=== PATIENT | male | born 1960 | race African-American/Black ===

== ENCOUNTER 2018-01-02 10:12 | Inpatient (IN) | payer OTHER ==
[~2018-01-02] VITALS: Ht 188 cm; Wt 107.6 kg
--- NOTE | ~2018-01-02 | EKG ---
[address] [place] [address] ELECTROCARDIOGRAM REPORT Name: CYDNEY ARIZMENDI Room #: 354-P ADM IN M.R.#: [id number] Admission: 01/02/18 Attend Phys: Shubham Tavera DO Discharge: Date of : 62 Report #: [id number] THIS REPORT FOR: //name// [facility] Test Date: 2018-01-03 Test Time: 10:05:48 Pat Name: CYDNEY ARIZMENDI Department: Room: 354 P Gender: M Fraud Prevention Analyst: MELISSA : 1960 Requested By: Ernesto Nguyen Order Number: [id number] MD: Franklyn Talley Measurements Intervals [place] Rate: 115 P: 69 SC: 146 QRS: 7 QRSD: 87 T: -1 QT: 344 QTc: 476 Interpretive Statements Sinus tachycardia Borderline prolonged QT interval Compared to ECG 01/03/2018 00:35:20 T-wave abnormality no longer present Electronically Signed On 01-04-2018 7:46:42 LEARNING ADMINISTRATOR by Franklyn Talley [email or web address] <ELECTRONICALLY SIGNED> By: Franklyn Talley MD, [facility] 01/04/18 0746 D: [id number] Franklyn Talley MD, FACC /EPI
--- NOTE | ~2018-01-02 | EKG ---
[place] [address] [address] [facility] [place] [address] ELECTROCARDIOGRAM REPORT Name: CYDNEY ARIZMENDI Room #: 354-P ADM IN M.R.#: [id number] Admission: 01/02/18 Attend Phys: Shubham Tavera DO Discharge: Date of : 62 Report #: [id number] THIS REPORT FOR: //name// [facility] Test Date: 2018-01-03 Test Time: 00:35:20 Pat Name: CYDNEY ARIZMENDI Department: Room: 354 P Gender: M Piano Accompanist: AMBAR : 1960 Requested By: Lenora Schofield Order Number: [id number] MD: Franklyn Talley Measurements Intervals [place] Rate: 135 P: -46 MS: 125 QRS: -8 QRSD: 87 T: 9 QT: 308 QTc: 462 Interpretive Statements Sinus or ectopic atrial tachycardia Borderline T abnormalities, inferior leads Baseline wander in lead(s) V1 Compared to ECG 01/02/2018 10:14:44 Sinus tachycardia no longer present Electronically Signed On 01-03-2018 8:48:21 SHIPYARD HELPER by Franklyn Talley [email or web address] <ELECTRONICALLY SIGNED> By: Franklyn Talley MD, [facility] 01/03/18 0848 0035 0035 Franklyn Talley MD, [facility] /EPI
--- NOTE | ~2018-01-02 | EKG ---
[place] [address] [employer] [facility] [place] [address] ELECTROCARDIOGRAM REPORT Name: CYDNEY ARIZMENDI Room #: PRE M.R.#: [id number] Admission: Attend Phys: Discharge: Date of : 62 Report #: [id number] THIS REPORT FOR: //name// [facility] ED Test Date: 2018-01-02 Test Time: 10:14:44 Pat Name: CYDNEY ARIZMENDI Department: Room: Gender: M Assembler Fluorescent Lights: Salazar ARIZMENDI : 1960 Requested By: Babatunde Ray Order Number: [id number] MD: Ernesto Nguyen Measurements Intervals [place] Rate: 119 P: 70 MI: 145 QRS: -7 QRSD: 86 T: -21 QT: 349 QTc: 492 Interpretive Statements Sinus tachycardia Consider left ventricular hypertrophy Artifact in lead(s) I,II,aVR,aVL,aVF No previous ECG available for comparison Electronically Signed On 01-02-2018 10:29:53 BILLING SPEC by Ernesto Nguyen [email or web address] <ELECTRONICALLY SIGNED> By: Ernesto Nguyen MD 01/02/18 1029 1014 1014 Ernesto Nguyen MD /DIVINA
--- NOTE | ~2018-01-02 | EKG ---
[address] [place] [address] ELECTROCARDIOGRAM REPORT Name: CYDNEY ARIZMENDI Room #: 354-P ADM IN M.R.#: [id number] Admission: 01/02/18 Attend Phys: Shubham Tavera DO Discharge: Date of : 62 Report #: [id number] THIS REPORT FOR: //name// [facility] Test Date: 2018-01-08 Test Time: 10:20:24 Pat Name: CYDNEY ARIZMENDI Department: Room: 354 P Gender: M Dry Yard Worker: jlpepe : 1960 Requested By: Shubham Tavera Order Number: [id number] MD: Franklyn Talley Measurements Intervals [place] Rate: 93 P: 57 UT: 153 QRS: -6 QRSD: 94 T: -7 QT: 386 QTc: 481 Interpretive Statements Sinus rhythm Atrial premature complexes Borderline prolonged QT interval Compared to ECG 01/03/2018 10:05:48 Atrial premature complex(es) now present Sinus tachycardia no longer present Electronically Signed On 01-08-2018 13:11:57 NANNY BABYSITTER by Franklyn Talley [email or web address] <ELECTRONICALLY SIGNED> By: Franklyn Talley MD, [facility] 01/08/18 1311 1020 1020 Franklyn Talley MD, [facility] /EPI
--- NOTE | ~2018-01-02 | S ---
[facility] [place] [address] SURGICAL PATH RPT PROCEDURE Name: CYDNEY ARIZMENDI Room #: 354-P ADM IN M.R.#: [id number] Admission: 01/02/18 Date of : 62 Discharge: Report #: [id number] Path Case #: [id number] PATHOLOGY REPORT COLLECTION DATE: 01/10/2018 RECEIVED DATE: 01/10/2018 SUBMITTING PHYS: Dr. Reina Spencer OTHER PHYS: Dr. Shubham Tavera SPECIMEN(S) RECEIVED: A.Duodenal bulb B.Antrum C.Cecal polyp D.Ascending polyps x3 E.Colon polyp at 55 cm x3 * * * * * * * * * * * * FINAL DIAGNOSIS: A. Duodenal bulb: - Duodenal mucosa with intact villous architecture and no increase in intraepithelial lymphocytes. B. Antrum: - Mild chronic inactive gastritis. - An H. pylori immunostain is negative (Block B1; appropriately reactive control). C. Cecal polyp: - Tubular adenoma, fragments. - Negative for high grade dysplasia. D. Ascending polyps x3: - Tubular adenoma, four fragments. - Negative for high grade dysplasia. E. Colon polyp at 55 cm x3: - Tubulovillous adenoma, multiple fragments. - Negative for high grade dysplasia. PATHOLOGIST: Dennis Raines M.D. REPORT ELECTRONICALLY SIGNED BY: Dennis Raines M.D. DATE/TIME: 01/11/2018 15:05 * * * * * * * * * * * * GROSS PATHOLOGY: A. Received in formalin labeled "Cydney Arizmendi, BX of duodenal bulb," are 2 segments of vaca soft tissue measuring 0.7 x 0.2 x 0.2 cm in aggregate dimensions and ranging from 0.3 to 0.4 cm in maximum dimension. The specimen is submitted entirely in cassette A1. B. Received in formalin labeled "Cydney Arizmendi, antral BX's," is a [address] [address] SURGICAL PATH RPT PROCEDURE Name: CYDNEY ARIZMENDI Room #: 354-P ADM IN M.R.#: [id number] Admission: 01/02/18 Date of : 62 Discharge: Report #: [id number] Path Case #: [id number] segment of vaca soft tissue measuring 0.4 cm in maximum dimension. The specimen is submitted entirely in cassette B1. After filtration of the specimen container, no additional tissue was recovered. C. Received in formalin labeled "Cydney Arizmendi, cecal polyp," are 3 segments of vaca soft tissue measuring 1.5 x 0.6 x 0.3 cm in aggregate dimensions and ranging from 0.4 to 0.6 cm in maximum dimension. The specimen is submitted entirely in cassette C1. D. Received in formalin labeled "Cydney Arizmendi, ascending colon polyps 3," are 4 segments of vaca soft tissue measuring 2.0 x 0.7 x 0.3 cm in aggregate dimensions and ranging from 0.4 to 0.6 cm in maximum dimension. The specimen is submitted entirely in cassette D1. E. Received in formalin labeled "Cydney Arizmendi, "EFG", polyp at 55 cm 3," is a 1.7 x 1.1 x 1.4 cm polypoid piece of vaca soft tissue. The margin is inked and the tissue is sectioned perpendicular to the margin and submitted in its entirety in cassette E1. Also received in the same container are multiple (more than 10) segments of dark vaca soft tissue measuring 2.2 x 1.5 x 0.7 cm in aggregate dimensions and ranging from 0.1-0.6 cm in maximal dimension. The specimen is filtered and entirely submitted in cassette E2. (TSD; 01/10/2018) CLINICAL HISTORY: Pre-OP DX: Nausea and abdominal pain Post-OP DX: Esophageal ulcer INITIAL CPT CODE(S): A; 85505 B; 45668, 82112 C; 17464 D; 66593 E; 53502 Professional services performed by [employer] at [facility] [address], [place] [address] Technical services performed by [employer] at [address] [place] [address], [address], [place] [address]. [employer] [facility] [place] [address] PHONE: [phone] DIRECTOR: Krzysztof Rodriguez M.D. * * * END OF REPORT * * *
--- NOTE | ~2018-01-02 | 2DMMODE ---
[facility] [address] [facility] [employer] [place] [address] 2 D/M-MODE ECHOCARDIOGRAM Name: CYDNEY ARIZMENDI Room #: 354-P ADM IN M.R.#: [id number] Admission: 01/02/18 Attend Phys: Shubham Tavera, Discharge: Date of : 62 Date of Service: 01/03/18 1258 Report #: [id number] THIS REPORT FOR: //name// APPROVED REPORT Study performed: 01/03/2018 11:13:41 EXAM: Comprehensive 2D, Doppler, and color-flow Echocardiogram Patient Location: Echo lab Room #: 354 Status: routine BSA: 2.35 HR: 107 bpm BP: 135/79 mmHg Rhythm: Tachycardia Other Information Study Quality: Adequate Indications Chest pain, HTN urgency. Hx: CAD, stent, HTN, HLP, DM 2D Dimensions RVDd: 33.98 mm LVEF(%): 53.18 (>50%) IVSd: 13.55 (7-11mm) LVOT Diam: 22.17 (18-24mm) LVDd: 43.53 mm PWd: 13.35 (7-11mm) Ascending Ao: 33.60 (22-36mm) LVDs: 31.70 (25-40mm) Aortic Root: 36.40 mm Silvestre's LVEF: 53.18 % Volumes Left Atrial Volume (Systole) Single Plane 4CH: 34.71 mL Single Plane 2CH: 50.25 mL LA ESV Index: 19.00 mL/m2 Aortic Valve AoV Peak Venu.: 1.36 m/s AO Peak Gr.: 7.37 mmHg LVOT Max P.13 mmHg LVOT Max V: 1.13 m/s LUIS Vmax: 3.22 cm2 Mitral Valve E/A Ratio: 0.6 MV Decel. Time: 190.47 ms [facility] [place] [place] [address] 2 D/M-MODE ECHOCARDIOGRAM Name: CYDNEY ARIZMENDI Room #: 354-P [facility] IN M.R.#: [id number] Admission: 01/02/18 Attend Phys: Shubham Tavera, Discharge: Date of : 62 Date of Service: 01/03/18 1258 Report #: [id number] E Max Venu.: 0.78 m/s MV A Venu.: 1.30 m/s MV PHT: 55.24 ms IVRT: 65.74 ms Pulmonary Valve PV Peak Venu.: 1.08 m/s PV Peak Gr.: 4.65 mmHg Pulmonary Vein P Vein S: 0.64 m/s P Vein D: 0.37 m/s P Vein S/D Ratio: 1.73 Tricuspid Valve RAP Estimate: 5.00 mmHg Left Ventricle The left ventricle is normal size. There is normal LV segmental wall motion. Mild concentric left ventricular hypertrophy. Left ventricular systolic function is normal. LVEF is 60%. Mild diastolic dysfunction is present (impaired relaxation pattern). Right Ventricle The right ventricle is normal size. The right ventricular systolic function is normal. Atria The left atrium size is normal. The right atrium size is normal. Aortic Valve The aortic valve is normal in structure. No aortic regurgitation is present. There is no aortic valvular stenosis. Mitral Valve The mitral valve is normal in structure. Trace mitral regurgitation. No evidence of mitral valve stenosis. Tricuspid Valve The tricuspid valve is normal in structure. There is no tricuspid valve regurgitation noted. Unable to assess PA pressure. Pulmonic Valve The pulmonary valve is normal in structure. Trace pulmonic regurgitation. [facility] [address] [place] [address] 2 D/M-MODE ECHOCARDIOGRAM Name: CYDNEY ARIZMENDI Room #: 354-P [facility] IN M.R.#: [id number] Admission: 01/02/18 Attend Phys: Shubham Tavera, Discharge: Date of : 62 Date of Service: 01/03/18 1258 Report #: [id number] Great Vessels The aortic root is normal in size. The ascending aorta is normal in size. IVC is normal in size and collapses >50% with inspiration. Pericardium There is no pericardial effusion. <Conclusion> The left ventricle is normal size. Mild concentric left ventricular hypertrophy. Left ventricular systolic function is normal. Mild diastolic dysfunction is present (impaired relaxation pattern). The right ventricle is normal size. The left atrium size is normal. There is no aortic valvular stenosis. Trace mitral regurgitation. There is no pericardial effusion. <ELECTRONICALLY SIGNED> By: Tony Gómez MD 01/03/18 1258 1258 1258 Tony Gómez MD /INF
--- NOTE | ~2018-01-02 | EKG ---
[address] [place] [address] ELECTROCARDIOGRAM REPORT Name: CYDNEY ARIZMENDI Room #: 354-P ADM IN M.R.#: [id number] Admission: 01/02/18 Attend Phys: Shubham Tavera DO Discharge: Date of : 62 Report #: [id number] THIS REPORT FOR: //name// [facility] Test Date: 2018-01-08 Test Time: 19:52:01 Pat Name: CYDNEY ARIZMENDI Department: Room: 354 P Gender: M Technology Intern: giselle whitaker : 1960 Requested By: Shubham Tavera Order Number: [id number] MD: Franklyn Talley Measurements Intervals [place] Rate: 79 P: 47 ND: 154 QRS: 6 QRSD: 95 T: 12 QT: 388 QTc: 445 Interpretive Statements Sinus rhythm No significant abnormality Compared to ECG 01/08/2018 10:20:24 Atrial premature complex(es) no longer present Electronically Signed On 01-09-2018 14:27:52 CDT by Franklyn Talley [email or web address] <ELECTRONICALLY SIGNED> By: Franklyn Talley MD, [facility] 01/09/18 1427 51 51 Franklyn Talley MD, FAC /EPI
--- NOTE | ~2018-01-02 | S ---
[facility] [place] [address] SURGICAL PATH RPT PROCEDURE Name: CYDNEY ARIZMENDI Room #: 354-P ADM IN M.R.#: [id number] Admission: 01/02/18 Date of : 62 Discharge: Report #: [id number] Path Case #: [id number] PATHOLOGY REPORT COLLECTION DATE: 01/07/2018 RECEIVED DATE: 01/07/2018 SUBMITTING PHYS: Dr. Robi Gilbert, OTHER PHYS: Dr. Shubham Tavera SPECIMEN(S) RECEIVED: A.Gallbladder * * * * * * * * * * * * FINAL DIAGNOSIS: Gallbladder, cholecystectomy: - Mild chronic cholecystitis. (IUV:pit; 01/10/2018) PATHOLOGIST: Rae Licona M.D. REPORT ELECTRONICALLY SIGNED BY: Rae Licona M.D. DATE/TIME: 01/10/2018 14:46 * * * * * * * * * * * * GROSS PATHOLOGY: Received in formalin labeled "Cydney Arizmendi, gallbladder" and consists of a previously opened gallbladder which measures 8.0 cm in length by 5.5 cm in circumference. The serosa is glistening and green. The mucosa is brown to green and velvety. The wall thickness is 0.3 cm. There are no calculi present within the container. Transportation Consultant sections are submitted as A1. (ROXANNA; 01/07/2018) CLINICAL HISTORY: Biliary dyskinesia INITIAL CPT CODE(S): A; 56147 Professional services performed by [facility] at [facility] [address], [place] [address] Technical services performed by [facility] at [address] [place] [id number]. [facility] [address] [place] [place] [address] SURGICAL PATH RPT PROCEDURE Name: CYDNEY ARIZMENDI Room #: 354-P ADM IN M.R.#: [id number] Admission: 01/02/18 Date of : 62 Discharge: Report #: [id number] Path Case #: [id number] [address] PHONE: [phone] DIRECTOR: Krzysztof Rodriguez M.D. * * * END OF REPORT * * *
--- NOTE | ~2018-01-02 | CATHLAB ---
[facility] [address] [place] [place] [address] INVASIVE PROCEDURE REPORT Name: CYDNEY ARIZMENDI Room #: 354-P ADM IN M.R.#: [id number] Admission: 01/02/18 Attend Phys: Shubham Tavera, Discharge: Date of : 62 Date of Service: 01/04/18 1347 Report #: [id number] THIS REPORT FOR: //name// APPROVED REPORT Patient Details Patient Status: Out-Patient Room #: The patient is a 57 year-old male Event Personnel Tony Gómez Sample Collector, Ulysses Mobley RN RN, Manjit Farias Monitor, Serena Pena RTR, SHAWN Scrub,, Blanche Onofre RTR Monitor Procedures Performed Left Heart Cath w/or w/o Coronaries [id number] [facility] Indication Dyspnea, Chest pain Risk Factors Hypercholesterolemia, Coronary Artery DiseaseHypertension Procedure Narrative The Right Groin^ was infiltrated with 1% Lidocaine subcutaneous anesthesia. A PINNACLE 4FR Sheath #[id number] sheath was inserted into the . Coronary angiography was performed using coronary diagnostic catheters. The right coronary system was accessed and visualized with a JR4 catheter. The left coronary system was accessed and visualized with a JL4 catheter. The left ventricle was accessed and visualized with a PIGTAIL catheter. Left ventricular/Aortic Valve gradient assessed via catheter pullback. Left ventriculogram was performed in 30 degree projection. Hemostasis was obtained with manual pressure following sheath removal without any complications. There was no hematoma. Intraoperative Conscious Sedation Sedation start time: 8.07 Case end Time: 8.17 Fentanyl 25 mcg Versed 1 mg Fluoro Time: 2.11 minutes Dose: 501 mGy Contrast Type and Amount: Omnipaque 100 ml [facility] [place] [address] INVASIVE PROCEDURE REPORT Name: CYDNEY ARIZMENDI Room #: 354-P [facility] IN [facility].#: [id number] Admission: 01/02/18 Attend Phys: Shubham Tavera, Discharge: Date of : 62 Date of Service: 01/04/18 1347 Report #: [id number] Coronary Angiography The patient's coronary anatomy is right dominant. Diagnostic Cath Left Main Patent vessel, with no flow-limiting lesions. LAD Moderate size caliber vessel, with mild disease in the mid segment, 20%. Diagonal 1 Patent vessel, with no flow-limiting lesions. Circumflex Supplies one obtuse marginal artery. OM1 A small-caliber vessel with minimal luminal irregularities in the proximal segment Right Coronary Moderate size caliber dominant vessel, supplying a PDA and RPL branch. R PDA Patent vessel, with no flow-limiting lesions. RPLV Patent vessel, supplies several branches as it travels down the inferolateral wall, with no flow-limiting lesions. Left Ventriculography The left ventricle is normal in size with normal contractility. The left ventricular ejection fraction is estimated to be 65%. Hemodynamics The aortic pressure is 131/83 mmHg with a mean of 100 mmHg. The left ventricular pressure is 146/5 mmHg with a mean of mmHg. The left ventricular end diastolic pressure is 26 mmHg. There was no gradient across the aortic valve upon pullback. Pullback from the left ventricle to the aorta revealed no gradient across the aortic valve. Conclusion 1. Mild, nonobstructive CAD. 2. Right dominant system. 3. Normal LV systolic function. 4. Recommend medical therapy. <ELECTRONICALLY SIGNED> By: Toyn Gómez MD 01/04/18 1347 1347 1347 Tony Gómez MD /INF
[~2018-01-02 10:12] MED LIST: DIOVAN 80 MG TA80 M1 PO; ERYTHROMYCIN E3.5 G3 OPHTHALMIC; FLEXERIL PO; LORTAB 5-325 M1 EACH PO; PLAVIX 75 MG TA75 M1 PO
[2018-01-02 10:13] VITALS: BP 234/137
[2018-01-02 11:13] LABS: HEMATOCRIT 48.5 % (42.0-52.0); HEMOGLOBIN 16.3 gm/dL (14.0-18.0); MCH 30.1 pg (26.0-34.0); MCHC 33.6 g/dL (28.0-37.0); MCV 89.7 fL (80.0-100.0); PLATELET COUNT 228 thou/uL (150-400); RBC 5.41 mil/uL (4.50-6.00); RDW 13.9 % (10.5-14.5); WBC 20.4 thou/uL (4.0-11.0)
[2018-01-02 11:27] LABS: ANION GAP 12 mmol/L (7-16); BUN 38 mg/dL (7-18); CALCIUM 9.5 mg/dL (8.5-10.1); CHLORIDE 95 mmol/L (98-107); CO2 24 mmol/L (21-32); CREATININE 1.5 mg/dL (0.7-1.3); POTASSIUM 3.9 mmol/L (3.5-5.1); SODIUM 131 mmol/L (136-145)
[2018-01-02 11:29] LABS: GLUCOSE 506 mg/dL (74-106)
[2018-01-02 11:31] LABS: ALBUMIN 3.5 g/dL (3.4-5.0); LIPASE 83 U/L (73-393); SGOT 15 U/L (15-37); SGPT 29 U/L (30-65); TOTAL BILIRUBIN 0.7 mg/dL (<0.1-1.0); TOTAL PROTEIN 8.4 g/dL (6.4-8.2); TROPONIN-I < 0.04 ng/mL (<0.06)
[2018-01-02] MEDS ORDERED: LIPITOR80 MG PO (11:53)
[2018-01-02 12:28] LABS: ABSOLUTE NEUTROPHILS 18.4 thou/uL (1.4-8.2)
[2018-01-02 12:29] LABS: ANISOCYTOSIS SLIGHT
[2018-01-02 14:02] VITALS: BP 168/112
[2018-01-02 18:59] VITALS: BP 147/89
[2018-01-02 23:50] VITALS: BP 201/120
[2018-01-03 00:18] LABS: URINE BILIRUBIN NEGATIVE (Negative); URINE BLOOD 2+ (Negative); URINE CLARITY CLEAR; URINE COLOR YELLOW; URINE GLUCOSE-RANDOM* 3+ (Negative); URINE KETONES TRACE (Negative); URINE LEUKOCYTES-REFLEX NEGATIVE (Negative); URINE NITRITE-REFLEX NEGATIVE (Negative); URINE PROTEIN (DIPSTICK) 3+ (Negative); URINE SPECIFIC GRAVITY 1.025 (1.005-1.035); URINE UROBILINOGEN 0.2 E.U./dl (0.2-1.0)
[2018-01-03 00:31] LABS: MUCUS 0-3 Light strn/LPF (None Seen); SQUAMOUS None Seen /LPF (0-3)
[2018-01-03 00:32] LABS: BACTERIA-REFLEX None Seen /HPF (None Seen); CASTS None Seen /LPF (None Seen); CRYSTALS None Seen /LPF (None Seen); URINE RBC 0-2 Rare /HPF (0-2); URINE WBC-REFLEX None Seen /HPF (0-5)
[2018-01-03 00:50] LABS: ABSOLUTE NEUTROPHILS 11.6 thou/uL (1.4-8.2); BASOPHILS 0.3 % (0.0-2.0); EOSINOPHILS 0.2 % (0.0-3.0); HEMATOCRIT 45.4 % (42.0-52.0); HEMOGLOBIN 15.2 gm/dL (14.0-18.0); MCH 30.2 pg (26.0-34.0); MCHC 33.4 g/dL (28.0-37.0); MCV 90.5 fL (80.0-100.0); MONOCYTES 6.7 % (1.0-8.0); PLATELET COUNT 192 thou/uL (150-400); POLYS 72.8 % (36.0-66.0); RBC 5.02 mil/uL (4.50-6.00); RDW 13.9 % (10.5-14.5); WBC 15.9 thou/uL (4.0-11.0)
[2018-01-03 01:01] LABS: ANION GAP 10 mmol/L (7-16); BUN 35 mg/dL (7-18); CALCIUM 8.4 mg/dL (8.5-10.1); CHLORIDE 102 mmol/L (98-107); CO2 24 mmol/L (21-32); CREATININE 1.2 mg/dL (0.7-1.3); GLUCOSE 179 mg/dL (74-106); POTASSIUM 3.7 mmol/L (3.5-5.1); SODIUM 136 mmol/L (136-145)
[2018-01-03 01:06] LABS: CHOLESTEROL 199 mg/dL (<200); HDL CHOLESTEROL 57 mg/dL (>40); LDL CHOLESTEROL 97 mg/dL (<100); TC:HDL 3.5 Ratio (Not establshd); TRIGLYCERIDE 228 mg/dL (<150); VLDL 46 mg/dL (<40)
[2018-01-03 01:10] LABS: SERUM ASSESSMENT Clear
[2018-01-03 02:30] VITALS: BP 183/108
[2018-01-03 03:00] VITALS: BP 155/85
[2018-01-03 04:00] VITALS: BP 147/102
[2018-01-03 08:26] VITALS: BP 135/79
[2018-01-03 17:08] LABS: GLYCOHEMOGLOBIN (HGB A1C) 9.5 % (4.8-5.6)
[2018-01-04] VITALS (12 sets, daily range): BP systolic 120–217; BP diastolic 83–132
[2018-01-04 06:38] LABS: BASOPHILS 0.3 % (0.0-2.0); EOSINOPHILS 0.7 % (0.0-3.0); HEMATOCRIT 41.3 % (42.0-52.0); MCH 30.5 pg (26.0-34.0); MCHC 33.8 g/dL (28.0-37.0); MCV 90.1 fL (80.0-100.0); MONOCYTES 4.7 % (1.0-8.0); PLATELET COUNT 187 thou/uL (150-400); POLYS 69.3 % (36.0-66.0); RBC 4.58 mil/uL (4.50-6.00); RDW 13.7 % (10.5-14.5); WBC 10.1 thou/uL (4.0-11.0)
[2018-01-04 06:51] LABS: CALCIUM 8.5 mg/dL (8.5-10.1); CREATININE 0.9 mg/dL (0.7-1.3); POTASSIUM 3.6 mmol/L (3.5-5.1)
[2018-01-05 04:30] VITALS: BP 153/73
[2018-01-05 06:50] LABS: HEMATOCRIT 41.5 % (42.0-52.0); HEMOGLOBIN 13.9 gm/dL (14.0-18.0); MCH 30.2 pg (26.0-34.0); MCHC 33.6 g/dL (28.0-37.0); RBC 4.61 mil/uL (4.50-6.00); RDW 13.5 % (10.5-14.5); WBC 8.4 thou/uL (4.0-11.0)
[2018-01-05 07:01] LABS: CALCIUM 8.5 mg/dL (8.5-10.1); CREATININE 1.1 mg/dL (0.7-1.3); POTASSIUM 3.9 mmol/L (3.5-5.1)
[2018-01-05 07:25] VITALS: BP 171/100
[2018-01-05 08:15] VITALS: BP 153/87
[2018-01-05 11:24] VITALS: BP 145/85
[2018-01-05 15:47] VITALS: BP 120/71
[2018-01-05 20:05] VITALS: BP 169/98
[2018-01-06 04:00] VITALS: BP 186/102
[2018-01-06 04:33] LABS: HEMATOCRIT 39.4 % (42.0-52.0); HEMOGLOBIN 13.3 gm/dL (14.0-18.0); MCH 30.5 pg (26.0-34.0); MCHC 33.8 g/dL (28.0-37.0); MCV 90.1 fL (80.0-100.0); RBC 4.37 mil/uL (4.50-6.00); RDW 14.1 % (10.5-14.5); WBC 7.8 thou/uL (4.0-11.0)
[2018-01-06 04:46] LABS: CALCIUM 8.4 mg/dL (8.5-10.1); POTASSIUM 3.8 mmol/L (3.5-5.1)
[2018-01-06 05:45] VITALS: BP 165/80
[2018-01-06 08:45] VITALS: BP 151/85
[2018-01-06 15:03] VITALS: BP 163/94
[2018-01-06 20:00] VITALS: BP 152/68
[2018-01-07] VITALS (11 sets, daily range): BP systolic 148–200; BP diastolic 76–108
[2018-01-08 20:05] VITALS: BP 165/83
[2018-01-09 04:18] VITALS: BP 164/69
[2018-01-09 06:49] LABS: ABSOLUTE NEUTROPHILS 3.7 thou/uL (1.4-8.2); BASOPHILS 0.3 % (0.0-2.0); EOSINOPHILS 3.5 % (0.0-3.0); HEMATOCRIT 36.2 % (42.0-52.0); HEMOGLOBIN 12.2 gm/dL (14.0-18.0); MCH 30.4 pg (26.0-34.0); MCHC 33.7 g/dL (28.0-37.0); MCV 90.1 fL (80.0-100.0); MONOCYTES 7.7 % (1.0-8.0); PLATELET COUNT 180 thou/uL (150-400); POLYS 58.5 % (36.0-66.0); RBC 4.02 mil/uL (4.50-6.00); RDW 13.7 % (10.5-14.5); WBC 6.4 thou/uL (4.0-11.0)
[2018-01-09 07:05] LABS: CALCIUM 8.3 mg/dL (8.5-10.1); POTASSIUM 3.7 mmol/L (3.5-5.1)
[2018-01-09 11:18] VITALS: BP 178/9
[2018-01-09 16:09] VITALS: BP 146/82
[2018-01-09 20:20] VITALS: BP 161/92
[2018-01-10 04:35] VITALS: BP 145/78
[2018-01-10 05:57] LABS: HEMATOCRIT 36.4 % (42.0-52.0); HEMOGLOBIN 12.2 gm/dL (14.0-18.0); MCH 30.5 pg (26.0-34.0); MCHC 33.6 g/dL (28.0-37.0); MCV 90.8 fL (80.0-100.0); RBC 4.01 mil/uL (4.50-6.00); RDW 13.7 % (10.5-14.5); WBC 6.3 thou/uL (4.0-11.0)
[2018-01-10 06:18] LABS: CALCIUM 8.3 mg/dL (8.5-10.1); CREATININE 1.1 mg/dL (0.7-1.3); POTASSIUM 3.7 mmol/L (3.5-5.1)
[2018-01-10 07:22] VITALS: BP 134/83
[2018-01-10 17:38] VITALS: BP 182/107
[2018-01-10 19:32] VITALS: BP 119/74
[2018-01-11 04:42] VITALS: BP 182/97
[2018-01-11 06:45] LABS: ABSOLUTE NEUTROPHILS 4.4 thou/uL (1.4-8.2); BASOPHILS 0.3 % (0.0-2.0); EOSINOPHILS 3.2 % (0.0-3.0); HEMATOCRIT 32.7 % (42.0-52.0); HEMOGLOBIN 11.4 gm/dL (14.0-18.0); LYMPHOCYTES 29.6 % (24.0-44.0); MCH 31.8 pg (26.0-34.0); MCHC 34.9 g/dL (28.0-37.0); MCV 91.2 fL (80.0-100.0); MONOCYTES 6.4 % (1.0-8.0); PLATELET COUNT 199 thou/uL (150-400); POLYS 60.5 % (36.0-66.0); RBC 3.59 mil/uL (4.50-6.00); RDW 13.9 % (10.5-14.5); WBC 7.3 thou/uL (4.0-11.0)
[2018-01-11 06:54] LABS: CALCIUM 8.3 mg/dL (8.5-10.1); POTASSIUM 3.5 mmol/L (3.5-5.1)
[2018-01-11 07:52] VITALS: BP 147/70
[2018-01-11] MEDS ORDERED: TOPROL XL100 MG PO (08:50)
[2018-01-11] MEDS ORDERED: HYDROCODON-ACE1 EAC7 PO (08:55)
[2018-01-11] MEDS ORDERED: PANTOPRAZOLE SO40 M1 PO (08:56)
[2018-01-11] MEDS ORDERED: CARAFATE 11 GM/10 M1 PO (08:56)
[2018-01-11] MEDS ORDERED: LANTUS100 UNIT/M SUBQ (08:57)
[2018-01-11] MEDS ORDERED: MELATONIN5 M1 PO (08:57)
[2018-01-11] MEDS ORDERED: NOVOLOG100 UNIT/1 SUBQ (08:57)
[2018-01-11 13:13] VITALS: BP 132/85
[2018-01-11] MEDS ORDERED: COLACE100 MG PO (15:21)
[2018-01-11] MEDS ORDERED: MIRALAX17 GM PO (15:21)
== END 2018-01-11 16:12 | DRG 356 ==
LOC: ER 10:12 → 3W 12:51 → EROBS 12:51 → 3W 13:19
PROVIDERS: Emergency Medicine; Family Medicine; Hospitalist; Internal Medicine Cardiovascular Disease
DX: K22.10 Ulcer of esophagus without bleeding (principal); N17.0 Acute kidney failure with tubular necrosis; K82.8 Other specified diseases of gallbladder; I16.0 Hypertensive urgency; E78.5 Hyperlipidemia, unspecified; I10 Essential (primary) hypertension; E11.65 Type 2 diabetes mellitus with hyperglycemia; E86.0 Dehydration; R25.2 Cramp and spasm; I25.10 Atherosclerotic heart disease of native coronary artery without angina pectoris; F41.9 Anxiety disorder, unspecified; K63.5 Polyp of colon; K21.0 Gastro-esophageal reflux disease with esophagitis; Z79.899 Other long term (current) drug therapy; Z86.73 Personal history of transient ischemic attack (TIA), and cerebral infarction without residual deficits
CPT/HCPCS: 10879; 50010; 50101; 50249; 50411; 50555; 50558; 50962; 51489; 51975; 52265; 53307; 53310; 54022; 54118; 55245; 55317; 56462; 56525; 56526; 62110; 62900; 70005

== ENCOUNTER 2019-01-15 13:15 | Inpatient (IN) | payer OTHER ==
[~2019-01-15] VITALS: Ht 188 cm; Wt 109.1 kg
--- NOTE | ~2019-01-15 | O ---
[facility] [place] [address] OPERATIVE REPORT Name: CYDNEY ARIZMENDI Room #: 208-P ADM IN M.R.#: [id number] Admission: 01/15/19 ������������������ Attend Phys: Marjorie Oneal MD Discharge: ������������������ Date of : 62 Report #: [id number] THIS REPORT FOR: //name// CC: [facility] physician/PCP Marjorie Oneal DATE OF SERVICE: 01/19/2019 SURGEON: Jose M Mata DPM PREOPERATIVE DIAGNOSIS: Osteomyelitis, left great toe with nonhealing ulceration. POSTOPERATIVE DIAGNOSIS: Osteomyelitis, left great toe with nonhealing ulceration. PROCEDURE: 1. Amputation, left great toe with primary closure. 2. Pedicle skin flap, left foot. 3. Incision and drainage, left foot. ANESTHESIA: MAC. INJECTABLES: 30 mL of 0.5% Marcaine plain. SUTURES: 3-0 nylon. SPECIMENS: Left great toe. CULTURES: 1. Bone, left great toe, aerobic and anaerobic. 2. Soft tissue, left great toe, aerobic and anaerobic. ESTIMATED BLOOD LOSS: Roughly 1 mL. HEMOSTASIS: Left ankle pneumatic tourniquet at 275 mmHg. SPECIMENS: Left great toe. COMPLICATIONS: None. DESCRIPTION OF PROCEDURE: The patient was brought to the OR and placed on the table supine with induction of MAC anesthesia. A well-padded left ankle pneumatic tourniquet was placed. A local anesthetic block was given and the extremity was prepped and draped aseptically. After exsanguination and inflation of the tourniquet, a surgical scalpel was used to create a [facility] [address] [place] [address] OPERATIVE REPORT Name: UGOCYDNEY Room #: 208-P [facility] IN M.R.#: [id number] Admission: 01/15/19 ������������������ Attend Phys: Marjorie Oneal MD Discharge: ������������������ Date of : 62 Report #: [id number] racquet circumferential incision around the left great toe joint. Layered anatomic dissection utilized to disarticulate the great toe at the first MTP joint. There were no signs of infection at this level, and the extensor and flexor tendons were transected and the soft tissue and the wound debrided to facilitate closure. The skin margins were remodeled and a plantar medial flap was mobilized dorsally and sutured with 3-0 nylon in simple interrupted fashion. The wound was flushed with sterile saline prior to closure. Once the wound was sutured, it was dressed with a sterile compressive bandage and the tourniquet was deflated. The patient left the OR alert and oriented with no pain or complications noted. ��������������������������������������������� ���������������������������������������� By: ��������������������������������������������� 1438 1500 Jose M Mata DPM /vance
--- NOTE | ~2019-01-15 | HC ---
[facility] [place] [address] CONSULTATION Name: CYDNEY ARIZMENDI Room #: 208-P ADM IN M.R.#: [id number] Admission: 01/15/19 ������������������ Attend Phys: Marjorie Oneal MD Discharge: ������������������ Date of : 62 Report #: [id number] THIS REPORT FOR: //name// CC: [facility] physician/PCP Marjorie Oneal DATE OF SERVICE: 01/20/2019 CHIEF COMPLAINT: Postoperative day #1 for amputation of left great toe with primary closure for osteomyelitis. Preoperative wound culture grew sensitive Staph aureus. He is on parenteral cefazolin with good tolerance. He has been afebrile, relates low grade pain, he ambulates without difficulty. LABORATORY DATA: WBC 7.2, RBC 4.00, hemoglobin 12.6, hematocrit 36.4, platelets 185. BUN 21, creatinine 1.1, glucose 195. PHYSICAL EXAMINATION: The incision is well approximated. No inflammation, minimal edema. No active bleeding or drainage. No fluctuance or crepitation. No signs of acute vascular embarrassment. Immediate michael-incisional capillary refill with palpable dorsalis pedis and posterior tibial pulses to the left foot. Negative Homans' and Georges sign to either extremity. No popliteal adenopathy bilaterally. IMPRESSION: Status post left hallux amputation for osteomyelitis, type 2 diabetes mellitus. PLAN: May ambulate in a surgical shoe for short distances and transfers. Encourage to elevate the extremity and minimize ambulation. Awaiting custodial facility placement. ��������������������������������������������� ���������������������������������������� By: ��������������������������������������������� 1734 0416 Jose M Mata, CRISTINA /vance
--- NOTE | ~2019-01-15 | HC ---
[facility] [place] [address] CONSULTATION Name: CYDNEY ARIZMENDI Room #: 423-1 ADM IN M.R.#: [id number] Admission: 01/15/19 ������������������ Attend Phys: Marjorie Oneal MD Discharge: ������������������ Date of : 62 Report #: [id number] THIS REPORT FOR: //name// CC: [facility] physician/PCP Marjorie Oneal DATE OF SERVICE: 01/21/2019 CHIEF COMPLAINT: Postoperative day #2 for left hallux amputation for osteomyelitis. Preoperative cultures grew Staphylococcus aureus, surgical cultures are pending. He is on parenteral cefazolin with good tolerance. He has been afebrile with good appetite, minimal pain. No new labs for review. He is hypertensive. PHYSICAL EXAMINATION: Temperature 98.3, pulse 72, respirations 18, blood pressure 177/78. The incision is well approximated with no inflammation and minimal edema. No pallor, cyanosis or signs of acute vascular embarrassment. No underlying fluctuance or crepitation. The foot is warm with palpable pedal pulses and no signs of acute vascular embarrassment. There is immediate michael-incisional capillary refill. PLAN: Incision was cleansed and redressed with sterile 4 x 4s, ABD, Kerlix and Coban. The patient instructed to be minimally ambulatory on the foot, although he can bear weight to the left foot in a surgical shoe for short distances and transfers. ��������������������������������������������� ���������������������������������������� By: ��������������������������������������������� 1531 0152 Jose M Mata DPM /vance
[2019-01-15 13:15] VITALS: BP 166/99
[~2019-01-15 13:15] MED LIST changes: +CARAFATE 11 GM/10 M1 PO; +COLACE100 MG PO; +HYDROCODON-ACE1 EAC7 PO; +LANTUS100 UNIT/M SUBQ; +LIPITOR80 MG PO; +MELATONIN5 M1 PO; +MIRALAX17 GM PO; +NOVOLOG100 UNIT/1 SUBQ; +PANTOPRAZOLE SO40 M1 PO; +TOPROL XL100 MG PO
[2019-01-15 14:32] LABS: POTASSIUM 4.1 mmol/L (3.5-5.1)
[2019-01-15 14:35] LABS: BASOPHILS 0.5 % (0.0-2.0); EOSINOPHILS 4.3 % (0.0-3.0); HEMATOCRIT 38.1 % (42.0-52.0); LYMPHOCYTES 25.9 % (24.0-44.0); MCH 30.9 pg (26.0-34.0); MONOCYTES 6.4 % (1.0-8.0); PLATELET COUNT 185 thou/uL (150-400); POLYS 62.9 % (36.0-66.0); RBC 4.19 mil/uL (4.50-6.00); RDW 14.1 % (10.5-14.5); WBC 6.4 thou/uL (4.0-11.0)
[2019-01-15 14:45] LABS: CALCIUM 8.4 mg/dL (8.5-10.1)
[2019-01-15 15:43] VITALS: BP 166/99
[2019-01-15 16:38] LABS: CHOLESTEROL 154 mg/dL (<200); HDL CHOLESTEROL 47 mg/dL (>40); LDL CHOLESTEROL 73 mg/dL (<100); TC:HDL 3.3 Ratio (Not establshd); TRIGLYCERIDE 171 mg/dL (<150); TROPONIN-I <0.06 ng/mL (<0.06); VLDL 34 mg/dL (<40)
[2019-01-15 21:12] VITALS: BP 159/92
[2019-01-15 21:59] VITALS: BP 171/91
[2019-01-16 03:52] LABS: CALCIUM 8.3 mg/dL (8.5-10.1); MAGNESIUM 1.9 mg/dL (1.8-2.4); POTASSIUM 4.1 mmol/L (3.5-5.1)
[2019-01-16 05:13] LABS: HEMATOCRIT 37.9 % (42.0-52.0); HEMOGLOBIN 12.8 gm/dL (14.0-18.0); MCH 30.9 pg (26.0-34.0); MCHC 33.8 g/dL (28.0-37.0); MCV 91.4 fL (80.0-100.0); RBC 4.15 mil/uL (4.50-6.00); RDW 14.2 % (10.5-14.5); WBC 5.1 thou/uL (4.0-11.0)
[2019-01-16 05:53] VITALS: BP 184/86
[2019-01-16 08:05] VITALS: BP 173/86
--- NOTE | 2019-01-16 11:47 | 2DMMODE ---
[facility] [address] [place] [address] 2 D/M-MODE ECHOCARDIOGRAM Name: CYDNEY ARIZMENDI Room #: 212-P ADM IN M.R.#: [id number] ������������� Admission: 01/15/19 ������������� Attend Phys: Marjorie Oneal MD Discharge: ��� ������������� ��� Date of : 62 Date of Service: 01/16/19 1147 �� Report #: [id number] �������� ��������������������������������������������[id number] THIS REPORT FOR: //name// APPROVED REPORT Study performed: 01/16/2019 10:21:03 EXAM: Comprehensive 2D, Doppler, and color-flow Echocardiogram Patient Location: Bedside Room #: 212 Status: routine BSA: 2.35 HR: 86 bpm BP: 173/86 mmHg Rhythm: NSR Other Information Study Quality: Good Indications Chest pain, HTN. Hx: Mild CAD, HTN, HLP, DM, Stroke. 2D Dimensions RVDd: 35.98 mm IVSd: 12.67 (7-11mm) LVOT Diam: 23.23 (18-24mm) LVDd: 50.30 mm PWd: 11.72 (7-11mm) Ascending Ao: 33.46 (22-36mm) LVDs: 34.93 (25-40mm) Aortic Root: 34.97 mm Volumes Left Atrial Volume (Systole) Single Plane 4CH: 40.03 mL Single Plane 2CH: 53.97 mL LA ESV Index: 21.00 mL/m2 Aortic Valve AoV Peak Venu.: 1.14 m/s AO Peak Gr.: 5.20 mmHg LVOT Max P.41 mmHg LVOT Max V: 0.92 m/s LUIS Vmax: 3.43 cm2 Mitral Valve E/A Ratio: 1.3 MV Decel. Time: 184.62 ms MV E Max Venu.: 1.17 m/s [facility] [place] [address] 2 D/M-MODE ECHOCARDIOGRAM Name: CYDNEY ARIZMENDI Room #: 212-P [facility] IN ..#: [id number] ������������� Admission: 01/15/19 ������������� Attend Phys: Marjorie Oneal MD Discharge: ��� ������������� ��� Date of : 62 Date of Service: 01/16/19 1147 �� Report #: [id number] �������� ��������������������������������������������[id number] MV A Venu.: 0.88 m/s MV PHT: 53.54 ms IVRT: 76.12 ms Pulmonary Valve PV Peak Venu.: 0.84 m/s PV Peak Gr.: 2.79 mmHg Pulmonary Vein P Vein S: 0.54 m/s P Vein D: 0.43 m/s P Vein S/D Ratio: 1.26 Tricuspid Valve TR Peak Venu.: 2.62 m/s RAP Estimate: 5.00 mmHg TR Peak Gr.: 27.40 mmHg PA Pressure: 32.00 mmHg Left Ventricle The left ventricle is normal size. There is normal LV segmental wall motion. Mild concentric left ventricular hypertrophy. Left ventricular systolic function is normal. LVEF is 55-60%. Moderate diastolic dysfunction is present (pseudonormal filling). Right Ventricle The right ventricle is normal size. The right ventricular systolic function is normal. Atria The left atrium size is normal. The right atrium size is normal. Aortic Valve The aortic valve is normal in structure. No aortic regurgitation is present. There is no aortic valvular stenosis. Mitral Valve The mitral valve is normal in structure. Mild to moderate mitral regurgitation. Tricuspid Valve The tricuspid valve is normal in structure. Trace to mild tricuspid regurgitation. Estimated PAP is 30-35mmHg. Pulmonic Valve The pulmonary valve is normal in structure. Mild pulmonic regurgitation. [facility] [address] [place] [address] 2 D/M-MODE ECHOCARDIOGRAM Name: CYDNEY ARIZMENDI Room #: 212-P [facility] IN M.R.#: [id number] ������������� Admission: 01/15/19 ������������� Attend Phys: Marjorie Oneal MD Discharge: ��� ������������� ��� Date of : 62 Date of Service: 01/16/19 1147 �� Report #: [id number] �������� ��������������������������������������������[id number] Great Vessels The aortic root is normal in size. The ascending aorta is normal in size. IVC is normal in size and collapses >50% with inspiration. Pericardium There is no pericardial effusion. <Conclusion> The left ventricle is normal size. Mild concentric left ventricular hypertrophy. LVEF is 55-60%. The aortic valve is normal in structure. The mitral valve is normal in structure. Mild to moderate mitral regurgitation. The pulmonary valve is normal in structure. Mild pulmonic regurgitation. There is no pericardial effusion. ��������������������������������������������� <ELECTRONICALLY SIGNED> ���������������������������������������� By: Josué Corbett MD ��������������������������������������������� 01/16/19 1147 1147 1147 Josué Corbett MD /INF
[2019-01-16 12:05] VITALS: BP 178/93
[2019-01-16 12:18] VITALS: BP 178/93
[2019-01-16] MEDS ORDERED: NORCO 10-325 T1 EACH PO (14:22)
[2019-01-16] MEDS ORDERED: ATORVASTATIN CA40 MG PO (14:23)
[2019-01-16] MEDS ORDERED: PLAVIX 75 MG TA75 MG PO (14:23)
[2019-01-16] MEDS ORDERED: COREG25 MG PO (14:23)
[2019-01-16] MEDS ORDERED: AMLODIPINE BESY10 MG PO (14:23)
[2019-01-16] MEDS ORDERED: PAXIL10 MG PO (14:24)
[2019-01-16] MEDS ORDERED: PROTONIX40 M1 PO (14:24)
[2019-01-16] MEDS ORDERED: LANTUS SUBQ (14:31)
[2019-01-16] MEDS ORDERED: NOVOLOG100 UNIT/1 SUBQ (14:32)
[2019-01-16 16:00] VITALS: BP 172/90
--- NOTE | 2019-01-16 17:06 | EKG ---
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: MELISSA : 1960 Requested By: Thai Rodriguez Order Number: [id number] MD: Franklyn Talley Measurements Intervals [place] Rate: 70 P: 21 SC: 169 QRS: 8 QRSD: 88 T: 11 QT: 422 QTc: 456 Interpretive Statements Sinus rhythm Borderline ST elevation, consider early repolarization Compared to ECG 01/08/2018 19:52:01 No significant change was found Electronically Signed On 01-16-2019 17:05:49 CDT by Franklyn Talley [email or web address] ��������������������������������������������� <ELECTRONICALLY SIGNED> ���������������������������������������� By: Franklyn Talley MD, [facility] ��������������������������������������������� 01/16/19 1705 D: 03/747 7 Franklyn Talley MD, FACC /EPI
[2019-01-16 19:23] VITALS: BP 177/79
[2019-01-17 04:05] VITALS: BP 177/77
[2019-01-17 07:10] VITALS: BP 155/88
[2019-01-17] MEDS ORDERED: NICOTINE TRANSD14 M1 TRANSDERM (08:09)
[2019-01-17 15:42] VITALS: BP 154/87
--- NOTE | 2019-01-17 16:37 | HC ---
[facility] [place] [address] CONSULTATION Name: CYDNEY ARIZMENDI Room #: 212-P ADM IN M.R.#: [id number] Admission: 01/15/19 ������������������ Attend Phys: Marjorie Oneal MD Discharge: ������������������ Date of : 62 Report #: [id number] THIS REPORT FOR: //name// CC: [facility] physician/PCP Marjorie Oneal DATE OF SERVICE: 01/16/2019 TYPE OF REPORT: Infectious diseases consultation. REASON FOR CONSULTATION: I was asked to evaluate diabetic foot infection, left great toe. HISTORY OF PRESENT ILLNESS: The patient is a 58-year old with underlying diabetes, hypertension, peripheral vascular disease and peripheral neuropathy. He had a previous ankle reconstruction after fracture in 2012. He has had hardware infection identified in the ankle subsequently due to MRSA. About a year and a half ago, he had MRSA infection of the left second toe that required amputation. He has a hammertoe deformity of the left great toe and has had issues with recurring ulceration and swelling. He has a callus formation to the distal aspect of his toe. He has been evaluated at [facility] for planned first toe reconstruction to repair the hammertoe deformity. Over the last month, he has developed worsening wound to the distal aspect of his toe. He was seen by Podiatry 2 weeks ago for debridement. Unclear if any cultures were obtained. Subsequently, he was placed on oral antibiotic therapy following the debridement. He completed a week of therapy. He has been off now for 1 week and noticed increased swelling and pain. There has been moderate amount of drainage from the distal aspect of his toe. Blood sugar control has been adequate. No fever, chills or sweats. Due to the worsening drainage, he was recommended to come to the Emergency Room. Last evening, he was admitted after cultures were obtained from the wound and blood. He was placed on vancomycin and ceftriaxone. Also, in the Emergency Room, he had some chest discomfort and hypertension with blood pressure reported 186/103. ALLERGIES: None. MEDICATIONS: As noted on his MAR, which were reviewed. PAST MEDICAL HISTORY: Lumbar spine surgery, cholecystectomy, abdominal ventral hernia repair, hypertension, hyperlipidemia, stroke, diabetes, previous left ankle surgery, left second toe amputation and MRSA infection. FAMILY HISTORY: Noncontributory. SOCIAL HISTORY: Smoker of cigarettes. No significant alcohol intake. [facility] [address] [place] [address] CONSULTATION Name: CYDNEY ARIZMENDI Room #: 212-P ADM IN M.R.#: [id number] Admission: 01/15/19 ������������������ Attend Phys: Marjorie Oneal MD Discharge: ������������������ Date of : 62 Report #: [id number] REVIEW OF SYSTEMS: Denies any headache or change in vision. He has dentures. No other skin lesions. No adenopathy noted. Diabetic control, he states, has been good over the last several weeks. He states his A1c was less than 8. He has had glaucoma and diabetic retinopathy. Denies any kidney disease. He has had no cough or sputum production. The chest discomfort has resolved. No PND or orthopnea. Denies any GI or complaints. No other neurologic issues. He does have peripheral neuropathy up to his calf longstanding. No psychiatric issues or bleeding issues. Full 10-point review of systems was negative other than what is described above. PHYSICAL EXAMINATION: VITAL SIGNS: Afebrile and hemodynamically stable. GENERAL: He is alert and cooperative and pleasant, in no acute distress. HEENT: Eyes without scleral icterus. Mouth dentures, otherwise no mucositis or lesion. NECK: Supple, with no thyromegaly or mass. LUNGS: Clear. HEART: Regular with a 2/6 systolic murmur at apex with no diastolic component. No gallop. ABDOMEN: Obese, soft and nontender with no hepatosplenomegaly or mass. GENITAL AND RECTAL: Not performed. SKIN: Without rash. No palpable adenopathy. EXTREMITIES: Left great toe with an ulceration over the distal aspect. There was 2+ swelling. The toe and metatarsal head region were very tender to palpation. No cellulitis into the forefoot. Serous drainage to the dressing. No purulence identified. Pulses in the feet were normal, posterior tibia and dorsalis pedis. Sensation was diminished to touch both lower extremities, mid calf and down. Mood normal. LABORATORY STUDIES: Hemoglobin 12.8; WBC 5.1 and platelet count 184,000. Differential unremarkable. Sodium 138, potassium 4, bicarbonate 29, creatinine 1, blood glucose 133 and lactate 1.1. RADIOLOGICAL DATA: X-ray of the foot ulceration, left great toe cortical thinning of the terminal tuft suspecting early osteomyelitis, amputation, left second metatarsal shaft osteoarthrosis, previous subtalar fusion. IMPRESSION: A 58-year old with diabetic foot infection, I am suspecting distal toe osteomyelitis. He has small vessel vascular disease. He has palpable pulses. He has peripheral neuropathy. RECOMMENDATIONS: We will continue IV antibiotic therapy for his history of MRSA with vancomycin and ceftriaxone. We will await culture results. We will have surgery evaluation. We would consider further imaging studies to include an MRI scan as long as his ankle reconstruction is MR compatible. The area of concern [address] [address] CONSULTATION Name: CYDNEY ARIZMENDI Room #: 212-P ADM IN M.R.#: [id number] Admission: 01/15/19 ������������������ Attend Phys: Marjorie Oneal MD Discharge: ������������������ Date of : 62 Report #: [id number] should be far enough away from the hardware we could get a reasonable evaluation. We will check inflammatory markers. ��������������������������������������������� <ELECTRONICALLY SIGNED> ���������������������������������������� By: Jose M Her MD ��������������������������������������������� 01/17/19 1637 1109 2216 Jose M Her MD /nt
[2019-01-17 19:10] VITALS: BP 161/84
[2019-01-18 00:19] VITALS: BP 151/94
[2019-01-18 04:54] VITALS: BP 162/90
[2019-01-18 09:04] VITALS: BP 139/85
[2019-01-18 11:47] VITALS: BP 139/83
[2019-01-18 15:35] VITALS: BP 164/85
[2019-01-18 20:29] VITALS: BP 174/80
[2019-01-19 05:11] VITALS: BP 147/99
[2019-01-19 08:20] VITALS: BP 150/85
[2019-01-19 11:50] VITALS: BP 144/83
[2019-01-19 16:15] VITALS: BP 170/79
[2019-01-19 20:15] VITALS: BP 144/92; BP 173/126
[2019-01-20 00:15] VITALS: BP 172/79
[2019-01-20 04:27] LABS: CALCIUM 8.4 mg/dL (8.5-10.1); CREATININE 1.1 mg/dL (0.7-1.3); MAGNESIUM 1.7 mg/dL (1.8-2.4); POTASSIUM 3.9 mmol/L (3.5-5.1)
[2019-01-20 04:38] LABS: HEMATOCRIT 36.4 % (42.0-52.0); HEMOGLOBIN 12.6 gm/dL (14.0-18.0); MCH 31.5 pg (26.0-34.0); MCHC 34.6 g/dL (28.0-37.0); MCV 90.9 fL (80.0-100.0); RDW 13.7 % (10.5-14.5); WBC 7.2 thou/uL (4.0-11.0)
[2019-01-20 04:45] VITALS: BP 172/75
[2019-01-20 08:13] VITALS: BP 181/81
--- NOTE | 2019-01-20 11:06 | HC ---
[facility] [place] [address] CONSULTATION Name: CYDNEY ARIZMENDI Room #: 208-P ADM IN M.R.#: [id number] Admission: 01/15/19 ������������������ Attend Phys: Marjorie Oneal MD Discharge: ������������������ Date of : 62 Report #: [id number] THIS REPORT FOR: //name// CC: [facility] physician/PCP Marjorie Oneal DATE OF SERVICE: 01/17/2019 CHIEF COMPLAINT: Left great toe ulceration. HISTORY OF PRESENT ILLNESS: This is a 58-year-old male patient who was admitted to the hospital with ulceration of the left great toe. He has had increasing drainage and some pain. He has been seen at [facility] as well as by Dr. Jose M Randolph. He has a history of diabetes and hypertension. He has previously lost his second toe. PAST MEDICAL HISTORY: Positive for diabetes mellitus, hypertension, hyperlipidemia, previous MRSA infection in the left foot resulting in a second toe amputation. He has had history of stroke. FAMILY HISTORY: Noncontributory. SOCIAL HISTORY: The patient admits to 2 alcoholic beverages per week. Admits to a being a daily smoker. REVIEW OF SYSTEMS: CONSTITUTIONAL: Denies fever, chills, weight loss. NEUROLOGICAL: The patient denies focal weakness, numbness and tingling. EYES: The patient denies visual changes, redness or drainage. ENT: The patient denies earache, nasal drainage, sore throat. CARDIOVASCULAR: The patient denies chest pain or palpitations, diaphoresis. PULMONARY: The patient denies cough or shortness of breath. GASTROINTESTINAL: The patient denies nausea, vomiting, diarrhea, abdominal pain. ORTHOPEDIC: The patient does note the ulceration of the left great toe. Denies pain associated with that. MEDICATIONS: Include valsartan, Lipitor, Plavix, Flexeril, insulin. ALLERGIES: None. PHYSICAL EXAMINATION: VITAL SIGNS: At this time include temperature 36.9, pulse 77, respiratory rate of 18, blood pressure 161/84, pulse oximetry 98%. GENERAL: This is a chronically ill-appearing male patient who appears to be in minimal stress. [address] [address] CONSULTATION Name: CYDNEY ARIZMENDI Room #: 208-P [facility] IN M.R.#: [id number] Admission: 01/15/19 ������������������ Attend Phys: Marjorie Oneal MD Discharge: ������������������ Date of : 62 Report #: [id number] HEENT: Head is normocephalic. Nose and throat are clear. NECK: Supple. LUNGS: Clear. HEART: Regular. ABDOMEN: Soft. Bowel sounds present. EXTREMITIES: Examination of the lower extremities demonstrate palpable distal pulses. He has ulceration of the tip of the left great toe. X-ray demonstrates findings consistent with osteomyelitis of the terminal tuft. MRI demonstrates osteomyelitis involving the first phalanx with bone resorption and marrow edema. Ultrasound demonstrates scattered atherosclerotic disease without evidence of occlusion or high grade stenosis, mild right popliteal artery stenosis, mild left femoral artery stenosis. CLINICAL IMPRESSION: 1. Florence grade 3 diabetic foot ulceration, left great toe. 2. Diabetes mellitus secondary to peripheral neuropathy. 3. Left great toe osteomyelitis. RECOMMENDATIONS: At this point in time, we will recommend empiric antibiotic therapy, pending culture and sensitivity. He will need debridement of the infected bone. We will consult Dr. Randolph to see him again for this. Recommend topical Betadine for the time being. The patient is agreeable to current plan of care. I appreciate being asked to see him in consultation. ��������������������������������������������� <ELECTRONICALLY SIGNED> ���������������������������������������� By: Alvaro Elizabeth MD ��������������������������������������������� 01/20/19 1106 0759 1012 Alvaro Elizabeth MD /nt
[2019-01-20 16:00] VITALS: BP 153/91
--- NOTE | 2019-01-20 17:41 | HC ---
[facility] [place] [address] CONSULTATION Name: CYDNEY ARIZMENDI Room #: 208-P ADM IN M.R.#: [id number] Admission: 01/15/19 ������������������ Attend Phys: Marjorie Oneal MD Discharge: ������������������ Date of : 62 Report #: [id number] THIS REPORT FOR: //name// CC: [facility] physician/PCP Marjorie Oneal DATE OF SERVICE: 01/16/2019 HISTORY OF PRESENT ILLNESS: A 58-year-old -[place] male admitted with a nonhealing ulceration to the left distal hallux with complicated by type 2 diabetes mellitus. He has a recent history of malaise and increased foul smelling discharge from the distal aspect of the left hallux ulcer. He was admitted to the Emergency Room and is on parenteral vancomycin. He has a history of MRSA with a partial ray resection to the left second ray performed at [facility]. He is hypertensive. Blood cultures negative, wound cultures pending. He relates pain to the left lower extremity including the left hallux, that he rates at 5/10. He does have diabetic peripheral sensory neuropathy to some extent. LABORATORY DATA: WBC 5.1, RBC 4.15, hemoglobin 12.8, hematocrit 37.9 and platelets 194. BUN 15, creatinine 1.0 and glucose 124. Albumin 3.5. CRP 5.0. PHYSICAL EXAMINATION: VITAL SIGNS: Temperature 97.7, pulse 67, respirations 18 and blood pressure 178/93. EXTREMITIES: There is a full thickness penetrating ulceration of the distal aspect of the left hallux that probes to bone. The hallux has a rigid flexed hammertoe deformity. There is localized inflammation, erythema and necrosis to the distal left hallux consistent with deep tissue infection. There is scant serous drainage on his gauze, no expressible purulence or bleeding. There is no healthy granulation to the wound bed. There is some foul odor. He has +2 nonpitting edema to both legs. He has palpable left dorsalis pedis and posterior tibial pulses. There is no pallor, cyanosis or signs of acute vascular embarrassment. RADIOLOGICAL DATA: X-ray showed destruction of the distal aspect of the left distal phalanx consistent with osteomyelitis. IMPRESSION: Osteomyelitis, left distal hallux with nonhealing ulceration complicated by type 2 diabetes mellitus. PLAN: I recommend left hallux amputation at the first metatarsophalangeal joint with primary closure. I will recommend followup with the vascular specialist, although there are no signs of occlusion or high grade stenosis to either extremity. Arterial Doppler shows some scattered atherosclerosis with mild a right popliteal artery stenosis and a mild left superficial femoral artery [address] [address] CONSULTATION Name: CYDNEY ARIZMENDI Room #: 208-P [facility] IN M.R.#: [id number] Admission: 01/15/19 ������������������ Attend Phys: Marjorie Oneal MD Discharge: ������������������ Date of : 62 Report #: [id number] stenosis. He has palpable pulses and should have adequate perfusion to heal. We will keep the patient n.p.o. for left hallux amputation tomorrow. ��������������������������������������������� <ELECTRONICALLY SIGNED> ���������������������������������������� By: Jose M Mata DPM ��������������������������������������������� 01/20/19 1741 1750 0256 Jose M Mata DPM /nt
--- NOTE | 2019-01-20 17:41 | HC ---
[facility] [place] [address] CONSULTATION Name: CYDNEY ARIZMENDI Room #: 208-P ADM IN M.R.#: [id number] Admission: 01/15/19 ������������������ Attend Phys: Marjorie Oneal MD Discharge: ������������������ Date of : 62 Report #: [id number] THIS REPORT FOR: //name// CC: [facility] physician/PCP Marjorie Oneal DATE OF SERVICE: 01/16/2019 CHIEF COMPLAINT: Osteomyelitis, left distal hallux with nonhealing ulceration. HISTORY OF PRESENT ILLNESS: The patient is a 58-year-old male with nonhealing ulceration to the distal aspect of the DICTATION ENDS HERE. ��������������������������������������������� <ELECTRONICALLY SIGNED> ���������������������������������������� By: Jose M Mata DPM ��������������������������������������������� 01/20/19 1741 1742 0105 Jose M Mata DPM /nt
[2019-01-20 19:55] VITALS: BP 168/79
[2019-01-21 03:44] VITALS: BP 184/84
[2019-01-21 07:20] VITALS: BP 177/70
[2019-01-21 18:05] VITALS: BP 139/87
[2019-01-21 20:00] VITALS: BP 179/75
[2019-01-21 22:41] VITALS: BP 173/82
[2019-01-22 06:19] VITALS: BP 155/73
[2019-01-22 19:49] VITALS: BP 150/79
[2019-01-23 05:04] VITALS: BP 163/77
[2019-01-23 10:02] VITALS: BP 157/84
[2019-01-23 15:55] VITALS: BP 147/73
[2019-01-23 19:51] VITALS: BP 168/69
[2019-01-24 05:04] VITALS: BP 197/71
[2019-01-24 07:40] VITALS: BP 174/83
--- NOTE | 2019-01-24 10:07 | PATH ---
[facility] [address] [address] PATHOLOGY RPT PROCEDURE Name: CYDNEY ARIZMENDI Room #: 423-1 ADM IN M.R.#: [id number] ������������������ Admission: 01/15/19 ������������������ Date of : 62 Discharge: Report #: [id number] Path Case #: [id number] [facility] Accession Number: [id number] . 01 Material submitted: . LEFT GREAT TOE . 01 Clinical history: . Diabetic foot . 02 Diagnosis: Great toe, left foot, amputation: - Marked acute inflammation and fibrinoid degeneration extending into the subcutaneous tissue as well as bone, history of diabetes. - Bone margin viable and unremarkable. - Skin margin viable and unremarkable. (IUV:artistic director; 01/23/2019) MBR/01/23/2019 . 02 Electronically signed: . Rae Licona MD, Pathologist NPI- [id number] . 01 Gross description: . The specimen is received in formalin, labeled "Cydney Arizmendi, great toe left foot". Received is an amputated digit measuring 8.2 x 3.9 x 3.8 cm in greatest dimensions. The bone margin is smooth and concave in appearance, consistent with disarticulation. The bone and soft tissue margins are inked black. The nailbed and surrounding skin are absent exposing the underlying soft tissue. At the distal aspect of the specimen, there is a well-circumscribed, flat and light vaca lesion measuring 1.3 x 0.8 cm, which is 3.4 cm from the closest skin margin. A full-thickness longitudinal cross-section is submitted from proximal to distal aspects in cassettes A1 through A4, with cassettes A1 through three submitted following decalcification. (CAA; 01/20/2019) QAC/QAC . 02 Pathologist provided ICD-10: M86.172, L08.9, Z87.898 . 02 CPT . 310137, 818127 Specimen Comment: A courtesy copy of this report has been sent to Specimen Comment: [phone], . Specimen Comment: Report sent to / DR IGLESIAS Specimen Comment: A duplicate report has been [place] [address] PATHOLOGY RPT PROCEDURE Name: CYDNEY ARIZMENDI Room #: 423-1 ADM IN M.R.#: [id number] ������������������ Admission: 01/15/19 ������������������ Date of : 62 Discharge: Report #: [id number] Path Case #: [id number] updates. Performed at: 01 [facility] Emelia G[address]mez [address] [place] [address] [address], [place], [place] [id number] MD Dae Mcdonald MD Phone: [phone] Performed at: [address] [facility] [id number] MD Rae Licona MD Phone: [phone]
[2019-01-24 15:54] VITALS: BP 154/75
[2019-01-24 20:21] VITALS: BP 163/80
[2019-01-25 04:00] VITALS: BP 163/81
[2019-01-25 07:30] VITALS: BP 167/72
[2019-01-25] MEDS ORDERED: ASPIR 8181 MG PO (14:02)
[2019-01-25] MEDS ORDERED: WELLBUTRIN SR150 MG PO (14:03)
[2019-01-25] MEDS ORDERED: SANTYL OINTMENT30 G1 TP (14:04)
[2019-01-25] MEDS ORDERED: CELEXA20 MG PO (14:04)
[2019-01-25] MEDS ORDERED: HYDROCHLOROTH12.5 M1 PO (14:05)
[2019-01-25] MEDS ORDERED: LANTUS SUBQ (14:05)
[2019-01-25] MEDS ORDERED: TRAZODONE HCL50 MG (14:06)
[2019-01-25] MEDS ORDERED: NOVOLOG100 UNIT/1 SUBQ (14:08)
[2019-01-25] MEDS ORDERED: NORCO 10-325 T1 EACH PO (14:09)
[2019-01-25] MEDS ORDERED: NEURONTIN 300300 M1 (14:09)
[2019-01-25 16:00] VITALS: BP 146/73
[2019-01-25 19:44] VITALS: BP 157/74
[2019-01-26 05:00] VITALS: BP 166/82
[2019-01-26 08:00] VITALS: BP 174/90
[2019-01-26] MEDS ORDERED: KEFLEX500 M1 PO (09:15)
[2019-01-26] MEDS ORDERED: METOPROLOL SUCC50 MG PO (09:15)
[2019-01-26 15:40] VITALS: BP 169/83
[2019-01-26 20:49] VITALS: BP 139/65
[2019-01-27 06:41] VITALS: BP 184/64
[2019-01-27 08:00] VITALS: BP 192/99
[2019-01-27] MEDS ORDERED: HYDRALAZINE 2525 MG PO (09:42)
[2019-01-27 10:38] VITALS: BP 142/68
== END 2019-01-27 13:57 | DRG 854 ==
LOC: ER 13:15 → 4E 15:30 → 2N 15:30 → EROBS 15:30 → 2N 21:16 → 4E 01-21 16:48 → ENTRNSPT 01-27 12:54 → 4E 01-27 13:57
PROVIDERS: Emergency Medicine; Internal Medicine; ADMIT Internal Medicine
PROC: 0HXNXZZ Transfer Left Foot Skin, External Approach (ICD-10-PCS; principal; 2019-01-19)
PROC: 0Y6Q0Z0 Detachment at Left 1st Toe, Complete, Open Approach (ICD-10-PCS; principal; 2019-01-19)
DX: A41.9 Sepsis, unspecified organism (principal); M86.8X7 Other osteomyelitis, ankle and foot; L97.529 Non-pressure chronic ulcer of other part of left foot with unspecified severity; E11.69 Type 2 diabetes mellitus with other specified complication; E11.621 Type 2 diabetes mellitus with foot ulcer; I10 Essential (primary) hypertension; E78.5 Hyperlipidemia, unspecified; E11.51 Type 2 diabetes mellitus with diabetic peripheral angiopathy without gangrene; E11.42 Type 2 diabetes mellitus with diabetic polyneuropathy; M54.2 Cervicalgia; B95.61 Methicillin susceptible Staphylococcus aureus infection as the cause of diseases classified elsewhere; I25.10 Atherosclerotic heart disease of native coronary artery without angina pectoris; F17.210 Nicotine dependence, cigarettes, uncomplicated; Z90.49 Acquired absence of other specified parts of digestive tract; Z87.81 Personal history of (healed) traumatic fracture; Z86.73 Personal history of transient ischemic attack (TIA), and cerebral infarction without residual deficits; Z86.14 Personal history of Methicillin resistant Staphylococcus aureus infection; Z79.4 Long term (current) use of insulin; Z79.02 Long term (current) use of antithrombotics/antiplatelets; Z79.899 Other long term (current) drug therapy; Z71.6 Tobacco abuse counseling
CPT/HCPCS: 10081; 10783; 50010; 50101; 50386; 56527; 57091; 62110; 62850; 70005

== ENCOUNTER 2019-12-22 12:52 | Inpatient (IN) | payer OTHER ==
[~2019-12-22] VITALS: Ht 188 cm; Wt 100.2 kg
--- NOTE | ~2019-12-22 | O ---
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 SURGEON: Dr. Peter Modi. ANESTHESIA: General. ESTIMATED BLOOD LOSS: Minimal. DRAINS: No drains. TOURNIQUET TIME: 20 minutes. DESCRIPTION OF PROCEDURE: The patient brought to the operating room where he was placed under general anesthesia. Once under adequate general anesthesia, his left lower extremity was prepped and draped in sterile manner. The extremity was elevated and tourniquet placed to 250 mmHg. A fishmouth-type incision about the fourth and fifth toes at the proximal phalanges was then made. This was dissected down through the soft tissue sharply to the bone at each the fourth and fifth toes, which was then released of any surrounding soft tissue extending proximally to the metatarsophalangeal joint where the flexor and extensor tendons as well as the collateral ligaments were released, thus completing the amputation of the fourth and fifth toes. Once complete, the wound was irrigated copiously and closed with 3-0 nylon for the skin. The wound was dressed with Xeroform, 4 x 4s, and sterile soft compressive dressing was placed. Tourniquet was let down approximately 20 minutes. Toes were pink and warm with good capillary refill. There were no complications from the [facility] [address] [place] [address] OPERATIVE REPORT Name: CYDNEY ARIZMENDI Room #: 150-7 [facility]#: [id number] Admission: 12/22/19 Attend Phys: Peter Modi MD Discharge: Date of : 62 Report #: [id number] procedure. The patient tolerated the procedure well and went to recovery room without incident. By: 1527 1559 Peter Modi MD /nt
[~2019-12-22 12:52] MED LIST changes: +AMLODIPINE BESY10 MG PO; +ASPIR 8181 MG PO; +ATORVASTATIN CA40 MG PO; +CARVEDILOL12.5 MG PO; +CELEXA20 MG PO; +COREG25 MG PO; +CYMBALTA30 MG PO; +HYDRALAZINE 2525 MG PO; +HYDROCHLOROTH12.5 M1 PO; +IPRATROPIU0.2 MG/1 M INH; +KEFLEX500 M1 PO; +LANTUS SUBQ; +LIPITOR40 MG PO; +MELATONIN3 M1 PO; +METFORMIN HCL500 M3 PO; +METOPROLOL SUCC50 MG PO; +NEURONTIN 300300 M1 PO; +NICOTINE TRANSD14 M1 TRANSDERM; +NORCO 10-325 T1 EACH PO; +NORCO 5-325 TA1 EAC1 PO; +NOVOLOG100 UNIT/M SUBQ; +PAXIL10 MG PO; +PLAVIX 75 MG TA75 MG PO; +PROTONIX40 M1 PO; +SANTYL OINTMENT30 G1 TP; +TRAZODONE HCL50 MG; +ULTRAM50 MG PO; +WELLBUTRIN SR150 MG PO
[2019-12-22 14:39] VITALS: BP 159/74
[2019-12-22] MEDS ORDERED: PERCOCET 7.5-31 EAC1 PO (15:24)
[2019-12-22 16:00] VITALS: BP 159/74
--- NOTE | 2019-12-22 16:24 | EKG ---
[facility] [place] [address] ELECTROCARDIOGRAM REPORT Name: CYDNEY ARIZMENDI Room #: [address] [place] [address] M..#: [id number] Admission: 12/22/19 Attend Phys: Peter Modi MD Discharge: Date of : 62 Report #: [id number] THIS REPORT FOR: cc: SARA - Jessica family physician/PCP SARA - No family physician/PCP Franklyn Talley MD [facility] THIS REPORT FOR: //name// [facility] Test Date: 2019-12-22 Test Time: 13:37:41 Pat Name: CYDNEY ARIZMENDI Department: Room: 150 Gender: M 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 : 1960 Requested By: Peter Modi Order Number: [id number] MD: Franklyn Talley Measurements Intervals [place] Rate: 91 P: 6 ND: 157 QRS: 10 QRSD: 90 T: 14 QT: 364 QTc: 448 Interpretive Statements Sinus rhythm No significant abnormality Compared to ECG 01/16/2019 07:48:30 No significant changes Electronically Signed On 12-22-2019 16:23:49 FIELD ARTILLERY FIRE CONTROL MAN by Franklyn Talley [email or web address] <ELECTRONICALLY SIGNED> By: Franklyn Talley MD, [facility] 12/22/19 1623 1337 [id number] Franklyn Talley MD, [facility] /EPI
--- NOTE | 2019-12-22 18:08 | NUR ---
ASSUMED CARE OF THE PT AT 1745. PT IS A&OX4. C/O PAIN, PAIN CONTROLLED BY MEDS, SEE EMAR. PTS DRESSING IS DRY AND INTACT. PT ON CARB CONTROL DIET, TRAY ORDERED FOR DINNER. FALL PRECAUTIONS IN PLACE, BED IN THE LOWEST POSITION AND CALL LIGHT IS IWTHIN REACH. WILL CONTINUE TO MONITOR THE PT.
[2019-12-22 19:15] VITALS: BP 162/87
[2019-12-23 04:00] VITALS: BP 146/74
--- NOTE | 2019-12-23 05:19 | NUR ---
ASSUMED PT CARE AROUND 1900. A&OX4. PT REQUESTED IV PAIN MEDICATION IN ADDITION TO PO PAIN MEDS FOR LEFT FOOT/TOE PAIN POST-OP TOE AMPUTATIONS. NOTIFIED RECORD PRESS SUPERVISOR WATER AEROBICS INSTRUCTOR FOR HOSPITALIST OF PT REQUEST. RECORD PRESS SUPERVISOR CAME TO SEE PT AND ORDERS WERE ENTERED. PT WAS GIVEN ONE TIME DOSE OF FENTANYL. HE WAS FRUSTRATED WITH ONLY RECEIVING ONE DOSE OF IV NARCOTICS. PT WAS EDUCATED ON DIFFERENCE BETWEEN PO AND IV PAIN MED USE AND WAS OFFERED IV KETOROLAC. PT INITALLY REFUSED THE IV KETOROLAC, STATING HE JUST WANTED THE IV FENTANYL ALTERNATED WITH THE PO NARCOTICS. CHARGE NURSE SPOKE WITH PT. PT DID EVENTUALLY AGREE TO TAKE IV KETOROLAC. HE WAS ABLE TO SLEEP A FEW HOURS AFTER MEDICATION WAS GIVEN. PAIN CONTROLLED AT THIS TIME. PROGRESSING SLOWLY TOWARD POC GOALS. WILL CONTINUE TO MONITOR.
[2019-12-23 06:17] LABS: ABSOLUTE NEUTROPHILS 2.6 thou/uL (1.4-8.2); BASOPHILS 0.4 % (0.0-2.0); EOSINOPHILS 6.8 % (0.0-3.0); HEMATOCRIT 34.3 % (42.0-52.0); HEMOGLOBIN 11.7 gm/dL (14.0-18.0); LYMPHOCYTES 25.8 % (24.0-44.0); MCH 31.9 pg (26.0-34.0); MCHC 34.1 g/dL (28.0-37.0); MCV 93.6 fL (80.0-100.0); MONOCYTES 10.3 % (1.0-8.0); PLATELET COUNT 148 thou/uL (150-400); POLYS 56.7 % (36.0-66.0); RBC 3.66 mil/uL (4.50-6.00); RDW 14.3 % (10.5-14.5); WBC 4.6 thou/uL (4.0-11.0)
[2019-12-23 06:20] LABS: CALCIUM 8.4 mg/dL (8.5-10.1); CREATININE 1.5 mg/dL (0.7-1.3); MAGNESIUM 1.6 mg/dL (1.8-2.4); POTASSIUM 3.9 mmol/L (3.5-5.1)
[2019-12-23 07:40] VITALS: BP 155/82
--- NOTE | 2019-12-23 14:21 | NUR ---
Assumed care of pt at 0700. Pt states his pain is uncontrolled. Prn pain meds administered. Provider aware. One time does of IV fentanyl administered as well. Dressing c/d/i. Pt observation status. Pt states he would not go home today. Will notify provider to change pt's admission status. Pt refuses fall precautions. Call light within reach. Will continue to monitor.
[2019-12-23 19:15] VITALS: BP 156/72
[2019-12-24 03:50] VITALS: BP 166/86
--- NOTE | 2019-12-24 05:12 | NUR ---
PT LYING IN BED. VOIDING PER URINAL. PERCOCET PROVIDING PAIN RELIEF. RESTING COMFORTABLY. NO NEEDS VOICED. CALL LIGHT WITHIN REACH. FREQUENT OBSERVATION.
[2019-12-24 08:57] LABS: ABSOLUTE NEUTROPHILS 2.2 thou/uL (1.4-8.2); BASOPHILS 0.5 % (0.0-2.0); EOSINOPHILS 7.1 % (0.0-3.0); HEMATOCRIT 38.2 % (42.0-52.0); HEMOGLOBIN 12.7 gm/dL (14.0-18.0); LYMPHOCYTES 30.8 % (24.0-44.0); MCH 30.9 pg (26.0-34.0); MCHC 33.3 g/dL (28.0-37.0); MCV 92.7 fL (80.0-100.0); MONOCYTES 6.9 % (1.0-8.0); PLATELET COUNT 168 thou/uL (150-400); POLYS 54.7 % (36.0-66.0); RBC 4.12 mil/uL (4.50-6.00); RDW 14.3 % (10.5-14.5); WBC 4.1 thou/uL (4.0-11.0)
--- NOTE | 2019-12-24 09:28 | NUR ---
PT IN BED WATCHING TV. STATES DOES NOT WANT TO LEAVE HOSPITAL NEEDS REHAB. AM MEDS GIVEN BLOOD SUGAR MONITORED AND INSULIN PER ORDERS, CUSTOMER EXPERIENCE PROFESSIONAL FOR DR INGRAM HERE TO SEE PATIENT.
[2019-12-24 09:29] LABS: ALBUMIN 2.8 g/dL (3.4-5.0); CALCIUM 8.8 mg/dL (8.5-10.1); POTASSIUM 4.1 mmol/L (3.5-5.1); TOTAL BILIRUBIN 0.4 mg/dL (<0.1-1.0); TOTAL PROTEIN 6.7 g/dL (6.4-8.2)
[2019-12-24 09:38] LABS: MAGNESIUM 1.6 mg/dL (1.8-2.4)
--- NOTE | 2019-12-24 10:15 | NUR ---
PT'S LEFT FOOT DRSG CHANGED, SUTURES INTACT. CALL FROM DR CARROLL TO CHANGE PRN PAIN MED.
[2019-12-24 17:01] VITALS: BP 171/81
[2019-12-24 19:29] VITALS: BP 170/84
--- NOTE | 2019-12-25 04:45 | NUR ---
PT AMBULATING TO BATHROOM WITH WALKER INDEPENDENTLY AND IS TOLERATING FAIR. PERCOCET AND FENTANYL PROVIDING PAIN RELIEF. POSSIBLE DISCHARGE HOME 12/25. RESTING COMFORTABLY. NO NEEDS VOICED CALL LIGHT WITHIN REACH. FREQUENT OBSERVATION.
[2019-12-25 07:55] VITALS: BP 156/78
--- NOTE | 2019-12-25 14:55 | NUR ---
PT ADMITTED RELATED RELATED TO LT 4TH AND 5TH TOES AMPUTATION. CM REVIEWED CHART AND SPOKE WITH CARE TEAM. CM MET WITH PT AT BEDSIDE THIS DAY. PT IS A&O X4. CM ROLE INTRODUCED. 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 PT HAD BEEN LIVING IN A HOUSE WITH A FAMILY MEMBER WITH 2 STEPS TO ENTER AND NO STEPS INSIDE. PT HAD BEEN USING A CANE TO ASSIST WITH MOBILITY BOARD MIXER TENDER. PT INDICATED HE PLANS TO RETURN TO [facility] IF THEY GET HIM A NEW MATTRESS AND "DETAIL THE ROOM". HE ASKED THAT DM CALL AND SPEAK WITH JOSEPHINE IN . CM DID AND CM INDICATED THAT WE HAD ORDERS FOR PT TO RETURN SKILLED THIS DAY. CM ASKED IF THEY NEEDED TO SUBMIT FOR AUTH FOR HIM TO RETURN MARLI INDICATED SHE HAD NO IDEA THAT HE [facility] OFFICE PERSON PERSON ANJELICA DEALS WITH THAT. SHE STATED THAT SHE WOULD PASS CM'S INFO ONTO ANJELICA. CM AWAITINF RESPONSE.
--- NOTE | 2019-12-25 16:24 | NUR ---
FAXED REFERRAL FOR SKILLED STAY TO [facility] SPOKE WITH MARLI AND SHE RECEIVED INFO AND GAVE IT TO THE ADM. LIASON TO REVIEW. PT IS DC READY. DP TO FOLLOW.
[2019-12-25 19:53] VITALS: BP 174/81
--- NOTE | 2019-12-25 20:22 | NUR ---
ASSUMED CARE OF THE PT AT 0700. PT IS NON COMPLIANT ON FALL PRECAUTIONS AND REFUSES TO CALL BEFORE GETTING OUT OF BED, RE EDUCATED PT AND STILL REFUSES TO COMPLY. R FOREARM DRY AND INTACT. BS CONTROLLED BY INSULIN. DRESSING CHANGE DONE BY PA. BED IN LOWEST POSITION AND CALL LIGHT IS WITHIN REACH. REPORT GIVEN TO 4N.
[2019-12-25 22:02] VITALS: BP 168/99
--- NOTE | 2019-12-26 04:54 | NUR ---
Assumed pt care at 2030 after transfer from . A/OX4,VSS. Up with RW to bathroom,pt is non compliant with fall risk safety and doesn't call for help while getting up. WBAT to left foot, dsg C/D/I on foot. C/o pain to left foot medicated per EMAR with some relief reported. Continent of B&B.Will continue to monitor pt.
[2019-12-26 07:20] VITALS: BP 174/103
[2019-12-26 09:31] LABS: HEMOGLOBIN 13.6 gm/dL (14.0-18.0); MCH 30.8 pg (26.0-34.0); MCHC 33.3 g/dL (28.0-37.0); MCV 92.7 fL (80.0-100.0); RBC 4.42 mil/uL (4.50-6.00); RDW 14.1 % (10.5-14.5); WBC 4.8 thou/uL (4.0-11.0)
[2019-12-26 09:38] LABS: CALCIUM 9.3 mg/dL (8.5-10.1); CREATININE 1.1 mg/dL (0.7-1.3); MAGNESIUM 1.8 mg/dL (1.8-2.4); POTASSIUM 4.4 mmol/L (3.5-5.1)
--- NOTE | 2019-12-26 13:09 | NUR ---
SW reviewed chart and spoke with nursing and hospitalist. Pt was transferred to [facility] from and is progressing towards goals for discharge. systems planner to fax updated clinical/therapy notes to [facility] for review. Will need insurance authorization for pt to return as skilled. Pt is able to transport via w/c van. PRANAY is following to assist as needed with discharge planning.
--- NOTE | 2019-12-26 15:16 | NUR ---
DISCHARGE PLANNING. PATIENT ADMITTED FROM [facility]. PLAN IS FOR PATIENT TO RETURN TO [facility] ONCE MEDICALLY READY. DISCHARGE ORDERS WRITTEN TODAY AND FAXED TO MARLI NARVAE[facility], [facility] SHAVING MACHINE OPERATOR. VOICE MAIL LEFT FOR MARLI TO NOTIFY. PER UNIT RN PATIENT IMPACTED PER KUB OBTAINED AND HAVING A LOT OF PAIN. DISCHARGE WILL BE HELD FOR TODAY PER UNIT RN. UNIT SW NOTIFIED.
[2019-12-26 15:32] VITALS: BP 131/85
--- NOTE | 2019-12-26 19:58 | NUR ---
ASSUMED CARE OF PATIENT AT 0715, PATIENT ALERT AND ORIENTED X 4. UP WITHOUT ASSIST WITH WALKER, PATIENT INSTRUCTED TO CALL FOR ASSISTANCE, BUT REFUSED, FALL RISK SCORED NOTED. C/O PAIN WITH LEFT FOOT, RECEIVED OXYCODONE 2 TABLETS X 2 THIS SHIFT, AND FENTANYL 12.5 MCG IV X 1 THIS SHIFT. PATIENT HAS RIGHT FOREARM IV IN PLACE, FLUSHED AND REMAINS PATENT. PATIENT MADE COMPLIANT TO NURSE ELECTRONIC PUBLISHING SPECIALIST/PRADEEP UN REGARD TO NIGHTSHIFT NURSE/GEORGE. PATIENT C/O CONSTIPATION, THIS RN NOTIFIED DR BOYD, ORDER FO LACTULOSE X1 THIS SHIFT, KUB ORDERED, SHOWED LARGE AMT. OF RETAINED STOOL. THIS RN NOTIFIED DR BOYD AT END OF THE SHIFT, NO RESULTS FROM LACTULOSE, RECEIVED ORDER FOR MAG. CITRATE X 1. WILL CONTINUE TO MONITOR.
[2019-12-26 20:30] VITALS: BP 142/93
[2019-12-27 03:43] VITALS: BP 136/75
--- NOTE | 2019-12-27 03:54 | NUR ---
Assumed care at 1900. Pt is A/OX4, VSS. Up with impaired gait/RW and sometimes without. Pt is non-compliant with fall risk and doesn't call for help;encouraged to call for assistance w/o success. Pt c/o pain to left foot, medicated per EMAR with partial relief reported. Pt still hasn't had a BM after drinking Mag citrate at HS,bowel sounds hypoactive/abd firm,reports passing gas. Lenora GRANTS ASSISTANT notified;order given for MOM/Dulcolax supp. Pt hesitant to take a suppository for now and took MOM/Prune juice cocktail and wait and see if it will be efffective. Dsg on left foot C/D/I. Will continue to monitor pt.
[2019-12-27 04:15] LABS: CALCIUM 8.4 mg/dL (8.5-10.1); CREATININE 1.1 mg/dL (0.7-1.3); POTASSIUM 4.2 mmol/L (3.5-5.1)
[2019-12-27 04:52] LABS: HEMATOCRIT 36.7 % (42.0-52.0); HEMOGLOBIN 12.3 gm/dL (14.0-18.0); MCH 31.1 pg (26.0-34.0); MCHC 33.4 g/dL (28.0-37.0); MCV 93.2 fL (80.0-100.0); RBC 3.94 mil/uL (4.50-6.00); RDW 13.8 % (10.5-14.5); WBC 5.2 thou/uL (4.0-11.0)
[2019-12-27 09:06] VITALS: BP 144/73
[2019-12-27 15:48] VITALS: BP 160/105
--- NOTE | 2019-12-27 16:07 | NUR ---
Cristian spoke with Christiano at [facility] several times this afternoon. She indicates that she is unsure if the pt's insurance has approved or denied a skilled stay for him. She was checking with her business office [employer] but stated they can accept him back retirement care today to his room. Cathode Ray Tube Salvage Processor spoke with the pt at bedside this afternoon regarding his dc plan to return to [facility] where he resides as a ltc patient. Both skilled and retirement care benefits and insurance role discussed. The pt indicates that he is not interested in having any therapy there and stated that the socialworker knows he wants outpatient therapy followup at [facility] and that was in the works. Christiano contacted again with pt at bedside and she indicates that they can accept him back [facility] retirement care. He asked if his room was ready and she asked to speak with him privately. He indicates that they had discussed some specific things he wanted done to his room prior to his return there. The pt asked leader writer if he could stay another night as he was having visitors that were bringing him dinner tonight. Pt's discharge order was confirmed with him and that the physician indicated he no longer needed to be in the hospital. Cathode Ray Tube Salvage Processor spoke with nursing and therapy and both indicated the same. Therapy noted that he is up ad jimi in his room and independent and that they were agreeable to him returning to [facility] care at the facility. The pt told nursing he wanted to appeal his discharge. The pt's medicare rights information was provided to him and he ask me why I had not asked him if he felt safe returning to the intermediate. He reported he did not feel safe returning today as they were making his bed and doing some special cleaning in his room and he did not think that would get done today. Pt's visitor was in the room at this time and has brought him dinner. Pt stated he knows his rights and how the system works. He refuses return to [facility] and indicates he will be calling to request an appeal of his discharge. [facility] updated. They report that his room is ready for him and he can return there ltc and they will work with him on outpt therapy at as he desires. Will follow. Nursing and the attending updated.
--- NOTE | 2019-12-27 18:08 | NUR ---
PT IS AOX4, VSS, PAIN CONTROLLED IN LEFT FOOT WITH ORAL PAIN ANALGESIC. PT IS UP AD GUILLERMINA IN ROOM WITH BOOT AND WALKER. PT IS ACTIVELY WORKING WITH PHYSICAL THERAPY. PT IS TOLERATING DIET WELL, IV IN RIGHT FA IS SL. PT WILL CALL FOR ASSISTANCE, NURSE ENCOURGED PT TO KEEP FOOT ELEVATED, DRESSING ON LEFT FOOT IS CDI. PT DRINKS MAG CITRATE FOR BOWEL MOVEMENT, STILL NO BM. CALL LIGHT/PERSONAL ITEMS IN REACH. WILL CONTINUE TO MONITOR.
--- NOTE | 2019-12-28 05:09 | NUR ---
ASSUMED CARE OF PATIENT AT APPROX. 2100. ASSESSMENT CHARTED. MEDICATIONS GIVEN PER DEC. PATIENT IS A&OX4, VSS. VOICES PAIN AT A 6/10 ON L FOOT. PRN ANALGESIC GIVEN PER DEC. PATIENT WAS TO D/C YESTERDAY 12/27 BUT APPEALED AGAINST IT. PATIENT REMAINS CLEAR TO BE D/C'D BUT IS CONCERENED ANOUT NOT HAVING A BM YET. PRUNE JUICE AND COLACE GIVEN THIS SHIFT; REFUSES SUPPOSITORY. PATIENT IS PASSING FLATUS THIS SHIFT. SLIDING SCALE INSULIN NOT INDICATED THIS SHIFT. PATIENT HAS A FALL SCORE INDICATING PATIENT IS A FALL RISK HOWEVER HE HAS BEEN GETTING UP INDEPENDENTLY THROUGHOUT THIS HOSPITAL STAY; PT CLEARED UP AD GUILLERMINA. PATIENT REQUESTED IV TO BE D/C'D HOWEVER THIS NURSE EDUCATED ON IMPORTANCE OF LEAVING IN DURING HOSPITAL STAY. PATIENT ENCOURAGED TO TAKE PO ANALGESIC INSTEAD OF IV PAIN MED IN ANTICIPATION TO D/C. MAKES NEEDS KNOWN, VOUCES NO OTHER NEEDS. WILL CONTINUE TO MONITOR AND FOLLOW PLAN OF CARE
[2019-12-28 10:06] VITALS: BP 137/85
--- NOTE | 2019-12-28 12:02 | NUR ---
PRANAY reviewed chart and spoke with nursing and hospitalist. Pt is medically stable for discharge. Pt did call the Medicare appeal hotline ([employer]) to appeal his discharge. [facility] requested clinicali info to be faxed to them for review. [facility] faxed requested info and received printed confirmation. Plan is for pt to return to [facility]. Awaiting input from Mary at this time. PRANAY is following to assist as needed with discharge planning. MARY--Case # [id number] or [phone]
[2019-12-28] MEDS ORDERED: AMITIZA 24 MCG24 MC1 PO (13:47)
[2019-12-28] MEDS ORDERED: MIRALAX119 GM PO (13:50)
[2019-12-28] MEDS ORDERED: SENOKOT8.6 MG PO (13:50)
--- NOTE | 2019-12-28 16:11 | NUR ---
ASSUMED CARE OF PATIENT AT 0715, PATIENT ALERT AND ORIENTED X 4. UP AD GUILLERMINA IN ROOM. DRESSING TO LEFT FOOT, C/D/I. PATIENT C/O PAIN WITH LEFT FOOT, OXYCODONE 2 TABLETS GIVEN AT 1100, PATIENT STATES NO PAIN RELIEF. BLOOD SUGAR MONITORING ORDERED, LAST BLOOD SUGAR 186, PATIENT GIVEN 3 UNITS. PATIENT CONTINUES TO C/O CONSTIPATION, PATIENT RECEIVED MIRALAX, BISACODYL SUPP. MOM, RELISTOR SUBQ. PRIOR TO DISCHARGE PATIENT HAD LARGE LOOSE STOOL, AND IS HAVING DIARRHEA. RIGHT FOREARM IV REMOVED PRIOR TO DISCHARGE. PATIENT FILED APPEAL, BUT HAS BEEN DENIED, WILL DISCHARGE TO [facility]. REPORT GIVEN TO VANDANA/IRMA. ALL DISCHARGE PAPERWORK AND ALL PERSONAL BELONGINGS SENT WITH THE PATIENT.
== END 2019-12-28 16:22 | DRG 503 ==
LOC: TBA 12:52 → OR 12:52 → TBA 12:53 → OR 13:46 → 4S 18:01 → 4N 18:02 → OR 18:02 → 4S 18:02 → 4N 12-25 21:05 → ENTRNSPT 12-28 15:36 → EDTRNSPTSTS 12-28 15:37 → 4N 12-28 16:22
PROVIDERS: Internal Medicine; Nurse Practitioner; ADMIT Orthopaedic Surgery Foot and Ankle Surgery
PROC: 0Y6W0Z0 Detachment at Left 4th Toe, Complete, Open Approach (ICD-10-PCS; principal; 2019-12-22)
PROC: 0Y6Y0Z0 Detachment at Left 5th Toe, Complete, Open Approach (ICD-10-PCS; principal; 2019-12-22)
DX: M25.572 Pain in left ankle and joints of left foot (principal); N17.0 Acute kidney failure with tubular necrosis; I10 Essential (primary) hypertension; E11.9 Type 2 diabetes mellitus without complications; E78.5 Hyperlipidemia, unspecified; F15.11 Other stimulant abuse, in remission; K21.9 Gastro-esophageal reflux disease without esophagitis; G47.33 Obstructive sleep apnea (adult) (pediatric); M62.830 Muscle spasm of back; F17.210 Nicotine dependence, cigarettes, uncomplicated; K59.00 Constipation, unspecified; G89.29 Other chronic pain; M54.9 Dorsalgia, unspecified; F41.9 Anxiety disorder, unspecified; J44.9 Chronic obstructive pulmonary disease, unspecified; Z79.891 Long term (current) use of opiate analgesic; Z98.1 Arthrodesis status; Z89.432 Acquired absence of left foot; Z79.899 Other long term (current) drug therapy; Z86.73 Personal history of transient ischemic attack (TIA), and cerebral infarction without residual deficits
CPT/HCPCS: 10102; 10790; 50010; 50101; 50386; 50951; 56527; 57091; 57179; 62110; 62900; 70005